=== PATIENT | male | born 1980 | race Caucasian/White ===

== ENCOUNTER → 2020-09-18 | Outpatient (CLI) | payer BC, OTHER ==
[~2020-09-18] MED LIST: DICLOFENAC POTA50 MG PO; PROAIR HFA8.5 GM INH; TADALAFIL5 M1 PO
== END ==
LOC: LAB 13:33
PROVIDERS: ATTEND Orthopaedic Surgery Foot and Ankle Surgery
DX: Z01.812 Encounter for preprocedural laboratory examination (principal); Z20.822 Contact with and (suspected) exposure to COVID-19

== ENCOUNTER 2020-09-19 09:32 | Inpatient (IN) | payer BC ==
[~2020-09-19] VITALS: Ht 190.5 cm; Wt 121.6 kg
--- NOTE | ~2020-09-19 | O ---
[facility] [place] [address] OPERATIVE REPORT Name: KEN BYERS Room #: [facility]-2 ADM IN M.R.#: [id number] Admission: 09/19/20 Attend Phys: Julio Cesar Grande MD Discharge: Date of : 82 Report #: [id number] THIS REPORT FOR: cc: FAM - No family physician/PCP FAM - No family physician/PCP Julio Cesar Grande MD ~ DATE OF SERVICE: 09/19/2020 PREOPERATIVE DIAGNOSIS: Left foot second metatarsal head osteomyelitis. POSTOPERATIVE DIAGNOSIS: Left foot second metatarsal head osteomyelitis. PROCEDURE: Left foot second metatarsal head excision. SURGEON: Dr. Julio Cesar Grande. DEGREASING WHEEL OPERATOR: Minoo Alvarenga. ANESTHESIA: General. ESTIMATED BLOOD LOSS: Minimal. DRAINS: No drains. TOURNIQUET TIME: 15 minutes. DESCRIPTION OF PROCEDURE: The patient brought to the operating room where he was placed under general anesthesia. Once under adequate general anesthesia, his left lower extremity was prepped and draped in sterile manner. The extremity was elevated and tourniquet placed to 250 mmHg. A dorsal incision at the second metatarsophalangeal joint was made and this was dissected down through the soft tissue to the metatarsal head and neck, which was then exposed. There was abundant purulent fluid. This was then cultured. There was significant synovitis in the surrounding joint as well. This was all debrided with a rongeur. The entrance for the penetrating wound was debrided as well with a curette. The wound was irrigated copiously and closed over a drain with 3-0 nylon suture. The second and third toes were sutured together with 2-0 nylon suture. Once complete, the wound was dressed with Xeroform, 4 x 4s, and sterile soft compressive dressing was placed. Tourniquet was let down approximately 15 minutes. Toes were pink and warm with good capillary refill. [facility] [address] [place] [address] OPERATIVE REPORT Name: KEN BYERS Room #: [address] [place] [address] [place] [facility]#: [id number] Admission: 09/19/20 Attend Phys: Julio Cesar Grande MD Discharge: Date of : 82 Report #: [id number] There were no complications from the procedure. The patient tolerated the procedure well and was taken to recovery room without incident. By: [id number] Julio Cesar Grande MD /nt
[2020-09-19 11:08] VITALS: BP 125/72
[2020-09-19 14:30] VITALS: BP 125/78
[2020-09-19 14:45] VITALS: BP 131/81
[2020-09-19 15:00] VITALS: BP 130/79
[2020-09-19 15:15] VITALS: BP 131/82
[2020-09-19 20:01] VITALS: BP 132/73
--- NOTE | 2020-09-19 22:12 | NUR ---
PATIENT ARRIVED TO COMB091 CAME FROM POST OP AFTER REPORT PT ALERT XS 4 STATES NO PAIN AT PRESENT REGULAR DIET. HAS LEFT FOOT WITH GAUZE WRAP AND PIERO TO BE UNDONE BY DR EDENILSON LINDSEY 09/20/20 ADMIT ASSESSMENT IN COMPUTER COMPLETED. PT IS PLEASANT AND COOPERATIVE WITH CARE. HAS POST OP SHOE TO TAKE HOME. V.S 99.7 18 94 132/73 O2 SAT =96 %RA. HEIGHT 6"3" WEIGHT = 268.0
[2020-09-20 03:27] VITALS: BP 127/55
--- NOTE | 2020-09-20 03:27 | NUR ---
PT APPEARS TO BE IN NO DISTRESS.LEFT FOOT WITH POST OP DRSG IN PLACE.TEST TUBE DRAIN WITH SCANT DRAINAGE.TOES WITH GOOD CSM. FOOT ELEVATED.AFEBRILE. CONTINUES ON IV FLUIDS AND ABTS.PT PREFERS TO HOP AROUND TO GET TO THE BATHROOM. DOES NOT LIKE TO USE WALKER OR URINAL BY THE [facility]. WILL CONTINUE WITH POC.
[2020-09-20 06:15] LABS: ABSOLUTE NEUTROPHILS 15.5 thou/uL (1.4-8.2); BASOPHILS 0.5 % (0.0-2.0); EOSINOPHILS 0.3 % (0.0-3.0); HEMATOCRIT 44.2 % (42.0-52.0); HEMOGLOBIN 14.7 gm/dL (14.0-18.0); LYMPHOCYTES 9.7 % (24.0-44.0); MCH 29.7 pg (26.0-34.0); MCHC 33.2 g/dL (28.0-37.0); MCV 89.3 fL (80.0-100.0); PLATELET COUNT 320 thou/uL (150-400); POLYS 81.5 % (36.0-66.0); RBC 4.95 mil/uL (4.50-6.00); RDW 13.3 % (10.5-14.5)
[2020-09-20 06:32] LABS: CALCIUM 8.4 mg/dL (8.5-10.1); CREATININE 1.1 mg/dL (0.7-1.3); MAGNESIUM 1.9 mg/dL (1.8-2.4); POTASSIUM 4.2 mmol/L (3.5-5.1)
[2020-09-20 07:45] VITALS: BP 115/71
--- NOTE | 2020-09-20 08:23 | NUR ---
ASSESSMENT: CM REVIEWED CHART AND SPOKE WITH PT AND HIS . PT IS ALERT AND ORIENTED X4. PT IS S/P LEFT 2ND METATARSAL HEAD EXCISION. PT REPORTS THAT HE LIVES IN A HOUSE WITH HIS . PT HAS NO STEPS TO ENTER OR ONCE INSIDE. PT REPORTS HE HAS NO DME AND HAS NEVER HAD THE NEED FOR IT. PT IS TOTALLY INDEPENDENT. PT REPORTS THAT HE HAS NOT HAD HH IN THE PAST. CM DISCUSSED ROLE. CM WILL CONTINUE TO FOLLOW TO ASSIST NEEDED.
[2020-09-20 12:01] VITALS: BP 115/71
--- NOTE | 2020-09-20 12:11 | NUR ---
FAXED REFERRAL TO [facility] HH SPOKE WITH YONY IN INTAKE SHE CAN ACCEPT AT [place].
--- NOTE | 2020-09-20 12:44 | NUR ---
on-going assessment: CM REVIEWED CHART AND SPOKE WITH PATIENT ABOUT LIKELY NEED FOR IV ANBX AT DISCHARGE. PT STATING HE HAS NO PREFERENCE OF [facility]. CULTURES ARE STILL PENDING AND CURRENTLY PT IS ON 2 ANTIBIOTICS. CM DISCUSSED PT COULD COME FOR OUTPT IF IT WAS A DAILY IV BUT FOR MULTIPLE TIMES A DAY HOME INFUSION CAN BE ARRANGED. REFERRAL SENT TO [facility] WHO IS CHECKING PATIENTS HOME INFUSION BENEFITS. PT ALSO STATES HE HAS NO PREFERENCE OF COMPANY. REFERRAL SENT TO [facility] AND NOTIFIED PTS PCP IS DR. GILLIAN FELICIANO. [facility] CAN ACCEPT FOR SERVICES. AWAITING INPUT FROM [facility] WELL FINAL RECS ON ANTIBIOTICS AT THIS TIME. CM WILL CONTINUE TO FOLLOW.
[2020-09-20 16:25] VITALS: BP 131/73
--- NOTE | 2020-09-20 20:24 | NUR ---
Received awake on bed. Due medications given as prescribed, able to swallow meds w/o difficulty. On room air. Vital signs stable. On MS, not on telemetry; no complains and signs of chest pain, crushing sensation and heaviness. Assisted in ADLs. On regular diet- tolerating well, no nausea, no vomiting and no abdominal pain noted. Continent of bowel and bladder, going to the toilet with standby assist and walker. With NS at 100 cc/hr, infusing well at R hand; on IV antibiotics as well. With dressing at L foot- C/D/I; with drain in place- no output for this shift, recorded; kept elevated; reminded pt re: non wt bearing status. Complained of pain, due PRN pain meds given as prescribed. Seen and examined by physical therapist, tolerated session well. Visited by spouse today- update given. To continue monitoring patient.
[2020-09-20 20:55] VITALS: BP 124/67; BP 129/58
[2020-09-21 03:20] VITALS: BP 127/68
--- NOTE | 2020-09-21 04:02 | NUR ---
ASSUMED PT CARE AT 1900.PT C/O PAIN ON HIS L FOOT,MANAGED WITH MED.PT OBSERVED WALKING TO THE TOILET PULLING HIS IV PUMP AND WALKER ALONG.PT EDUCATED TO USE THE CALL LIGHT FOR ASSISTANCE.FALL PRECAUTIONS IN PLACE BUT PT NOT COMPLIANT WITH FALL PRECAUTIONS.DRSG TO HIS L FOOT C/D/I.CALL LIGHT WITHIN REACH.
[2020-09-21 07:30] VITALS: BP 108/55
--- NOTE | 2020-09-21 10:04 | NUR ---
on-going assessment: cm reviewed chart and spoke with patient. PT IS GETTING HIS PICC PLACED TODAY. PT HAD NO PREFERENCE OF COMPANY AND CM NOTIFIED HIM THAT [facility] HAS ACCEPTED. [facility] HAS BEEN FOLLOWING PATIENT AND AWAITING FINAL RECS FOR IV ANBX. [facility] HAS CURRENTLY RAN THE COST OF THE CURRENT ANBX HE IS ON (VANC AND ZOSYN) AND REPORT IT WILL COST AROUND 406/WEEK FOR MEDICATION AND SUPPLIES UNLESS HE MEETS HIS $4000 OUT OF POCKET (WHICH WILL LIKELY BE MET BY HOSPITAL STAY THEN WILL BE COVERED AT 100 PERCENT). CM DISCUSSED WITH PATIENT THAT [facility] MAY CHANGE PENDING FINAL RECS AND FREQUENCY OF ANBX. CM NOTIFIED CORRODGER OF DISCHARGE LIKELY TODAY AND SHE REPORTS SHE CANNOT COME COMPLETE THE TEACHING UNTIL FINAL RECS FOR ANBX. CM NOTIFIED ATTENDING. AWAITING FINAL RECS AT THIS TIME. [facility] STATING IT WILL TAKE 4-6 HOURS TO MIX AND DELIVER FROM TIME FINAL RECS ARE RECEIVED. CM WILL CONTINUE TO FOLLOW TO ASSIST NEEDED.
--- NOTE | 2020-09-21 11:11 | NUR ---
CONSULTED TO PLACE A PICC FOR A PATIENT DISCHARGING HOME WITH A PICC FOR IV ANTIBIOTICS TODAY. ORDER AND CONSENT NOTED. THE PROCEDURE WELL BENIFITS AND RISK OF DVT AND INFECTION DISCUSSED. THE PATIENT VERBALIZED UNDERSTANDING. THE RIGHT UPPER AR BASILIC WAS WIDLEY PATENT AND THE 4F CATHETER WAS LESS THAN 15% OF THE VEIN DIAMETER. THE PICC WAS PLACED PER HOSPITAL POLICY AND TRIMMED TO 47CM. THE LINE WAS CONFIRMED AT 3CM EXTERNAL WITH INTRACARDIAC 3CG AT THE CAVOATRIAL JUNCTION. COPY PLACED IN THE PATIENTS CHART AND LINE RELEASED FOR USE
--- NOTE | 2020-09-21 14:51 | NUR ---
ASSUMED PT CARE THIS AM. PT VSS, A&OX4. PT MAKES NEEDS KNOWN. IV IN HAND REMOVED THIS AM, AND PICC PLACED BY IV TEAM. PLACEMENT VERIFIED PRIOR TO USE. MEDS TAKEN WELL AND INFUSING WELL THROUGHT [facility] PICC. DRESSING ON LEFT FOOT CHANGED TODAY. AMBULATORY TO THE BATHROOM. FALL PRECAUTIONS ARE IN PLACE.
[2020-09-21] MEDS ORDERED: CEFEPIME 22 GM/100 M IV (14:52)
[2020-09-21 16:24] VITALS: BP 125/51
--- NOTE | 2020-09-21 16:57 | NUR ---
FAXED DC ORDERS/SUMMARY TO [facility] HH SPOKE WITH GEOVANI IN INTAKE SHE RECEIVED ORDERS. FAXED DC ORDERS/SUMMARY TO [facility] RECEIVED CONFIRMATION.
--- NOTE | 2020-09-22 16:06 | PATH ---
[facility] [address] [place] [address] PATHOLOGY RPT PROCEDURE Name: KEN BYERS Room #: 439-P DIS IN M.R.#: [id number] Admission: 09/19/20 Date of : 82 Discharge: 09/21/20 Report #: [id number] Path Case #: [id number] [facility] Accession Number: [id number] . 01 Material submitted: . foot - 2ND METATARSAL HEAD. Modifiers: second . 01 Clinical history: . OTHER ACUTE OSTEOMYELITIS OF LEFT FOOT PUNCTURE WOUND OF LEFT FOOT . 02 Diagnosis: Bone "metatarsal head", resection: - Chronic osteomyelitis, with associated periostitis. - Negative for malignancy. (SAIDA:emmanuel; 09/21/2020) MBR 09/22/2020 1443 Local . 02 Electronically signed: . Ermias Lui MD, Pathologist NPI- [id number] . 01 Gross description: . The specimen is received in formalin, labeled "Marie, Ken, second metatarsal head" and consists of a segment of bone consistent with a metatarsal head measuring 1.9 x 1.7 x 1.3 cm. The articular surface is smooth corrales to white. The opposite transected margin is flat and smooth. A full-thickness longitudinal section is submitted in A1 following decalcification. (SDY; 09/20/2020) SYU/SYU 09/20/2020 1605 Local . 02 Pathologist provided ICD-10: M86.679 . 02 CPT . 218630, 030264 Specimen Comment: A courtesy copy of this report has been sent to [phone] Specimen Comment: Report sent to Performed at: [address], [place] [id number] MD Chad Strickland MD Phone: [phone] Performed at: [address] [id number] MD Kasia Rodriguez MD Phone: [phone]
== END 2020-09-21 18:11 | disposition home health service (06) | DRG 505 ==
LOC: OR → EDSTATUS 09:32 → PRE 10:12 → TBA 10:20 → 4S 10:20 → OR 13:03 → 4S 14:25 → OR 15:39 → 4S 09-21 18:11
PROVIDERS: ADMIT Orthopaedic Surgery Foot and Ankle Surgery; ATTEND Orthopaedic Surgery Foot and Ankle Surgery
PROC: 0QBP0ZZ Excision of Left Metatarsal, Open Approach (ICD-10-PCS; principal; 2020-09-19)
PROC: 05HY33Z Insertion of Infusion Device into Upper Vein, Percutaneous Approach (ICD-10-PCS; 2020-09-21)
DX: M86.8X7 Other osteomyelitis, ankle and foot (principal); Z88.6 Allergy status to analgesic agent; D72.829 Elevated white blood cell count, unspecified
CPT/HCPCS: 10102; 27000; 50010; 50101; 50386; 50825; 50951; 56525; 56528; 57091; 57179; 62110; 62900; 70005